=== PATIENT | female | born 1970 | race Caucasian/White ===

== ENCOUNTER 2019-11-20 13:29 | Emergency (ER) | payer BC, OTHER ==
[2019-11-20 13:50] VITALS: BP 156/87
--- NOTE | 2019-11-20 14:12 | UC ---
Respiratory Complaint HPI - HPI Summary HPI Summary: cough x 7 days cough is dry , worse with exertion and deep breathing better with rest, mild nasal congestion , pnd no fever, no chills, c/o chest tightness and sob , no chest pain , no wheezing, not improving with her albuterol inh - History of Current Complaint Chief Complaint: UCGeneralIllness Stated Complaint: SOB Time Seen by Provider: 11/20/19 13:52 Hx Obtained From: Patient Hx Last Menstrual Period: "the end of last month" ?: No Onset/Duration: Gradual Onset, Lasting Days - 7, Still Present Timing: Constant Severity Initially: Moderate Severity Currently: Moderate Pain Intensity: 0 Pain Scale Used: 0-10 Numeric Character: Cough: Nonproductive Aggravating Factors: Exertion, Deep Breaths Associated Signs And Symptoms: Positive: Dyspnea. Negative: Fever, Chills, Pleuritic Chest Pain, Wheezing, URI, Nasal Congestion - Allergies/Home Medications Allergies/Adverse Reactions: Allergies Allergy/AdvReac Type Severity Reaction Status Date / Time amoxicillin [From Augmentin] Allergy See Comment Verified 11/20/19 13:51 clavulanic acid Allergy See Comment Verified 11/20/19 13:51 [From Augmentin] Home Medications: Home Medications Albuterol 2.5MG/3ML (0.083%)* [Ventolin 2.5 MG/3 ML NEB.OLE*] 2.5 mg INH Q4H PRN 07/19/16 [History Confirmed 11/20/19] Albuterol HFA INHALER* [Ventolin HFA Inhaler*] 2 puff INH Q6H #1 mdi 07/19/16 [ Rx Confirmed 11/20/19] Beclomethasone 80 MCG MDI(NF) [Qvar 80 MCG MDI(NF)] 1 puff INH BID #1 mdi [Rx Confirmed 11/20/19] Lisinopril TAB* [Prinivil TAB*] 10 mg PO DAILY 11/20/19 [History Confirmed 11/19] predniSONE [Prednisone 20 MG TAB] 20 mg PO BID #10 tablet 11/20/19 [Rx] PMH/Surg Hx/FS Hx/Imm Hx Respiratory History: COPD Other History Of: Negative For: HIV, Hepatitis B, Hepatitis C, Anticoagulant Therapy - Surgical History Surgical History: Yes Surgery Procedure, Year, and Place: gallbladder removed, tubal ligation, D&C - Family History Known Family History: Positive: None Negative: Cardiac Disease, Hypertension, Respiratory Disease - Social History Alcohol Use: Daily Substance Use Type: None Smoking Status (MU): Heavy Every Day Tobacco Smoker Type: Cigarettes Amount Used/How Often: 1/2 PPD Length of Time of Smoking/Using Tobacco: On and Off for 33 Years Have You Smoked in the Last Year: Yes When Did the Patient Quit Smoking/Using Tobacco: Jun 2015 Household Exposure Type: Cigarettes - Immunization History Most Recent Influenza Vaccination: Not the Most Recent Pneumonia Vaccination: 2014 Review of Systems All Other Systems Reviewed And Are Negative: Yes Constitutional: Positive: Negative Skin: Positive: Negative Eyes: Positive: Negative ENT: Positive: Negative Respiratory: Positive: Shortness Of Breath, Cough Is Patient Immunocompromised?: No Physical Exam Triage Information Reviewed: Yes Appearance: Well-Appearing, No Pain Distress, Well-Nourished Vital Signs: Initial Vital Signs Temp 98.4 F 11/20/19 13:44 Pulse 92 11/20/19 13:44 Resp 18 11/20/19 13:44 BP 156/87 11/20/19 13:44 Pulse Ox 98 11/20/19 13:44 Vital Signs Reviewed: Yes Eye Exam: Normal Eyes: Positive: Conjunctiva Clear ENT Exam: Normal ENT: Positive: Normal ENT inspection, Hearing grossly normal, Pharynx normal Neck: Positive: Supple, Nontender, No Lymphadenopathy Respiratory: Positive: Chest non-tender, No respiratory distress, No accessory muscle use, Decreased breath sounds. Negative: Respiratory distress Cardiovascular: Positive: RRR, No Murmur, Pulses Normal Abdominal Exam: Normal Respiratory Course/Dx - Differential Dx/Diagnosis Provider Diagnosis: COPD (chronic obstructive pulmonary disease) Discharge ED - Sign-Out/Discharge Documenting (check all that apply): Patient Departure All imaging exams completed and their final reports reviewed: No Studies - Discharge Plan Condition: Stable Disposition: HOME Prescriptions: predniSONE [Prednisone 20 MG TAB] 20 mg PO BID #10 tablet Patient Education Materials: COPD (Chronic Obstructive Pulmonary Disease) (ED) Forms: *Work Release Referrals: No Primary Care Phys,NOPCP [Primary Care Provider] - If Needed - Billing Disposition and Condition Condition: STABLE Disposition: Home
== END 2019-11-20 14:06 | disposition home or self-care (01) ==
LOC: UCCORT 13:29
DX: J44.9 Chronic obstructive pulmonary disease, unspecified (principal); Z88.0 Allergy status to penicillin; Z88.1 Allergy status to other antibiotic agents; F17.210 Nicotine dependence, cigarettes, uncomplicated; Z79.899 Other long term (current) drug therapy; Z79.52 Long term (current) use of systemic steroids
CPT/HCPCS: 99211; G0463

== ENCOUNTER 2019-12-06 11:17 | Emergency (ER) | payer OTHER ==
--- NOTE | 2019-12-06 12:20 | UC ---
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 Had brief improvement with use of oral prednisone, but is again using her albuterol up to 4 times per day. She is aware that this is overuse. She is concerned that she continues to work at [employer] and feels unprotected from the coughing and sneezing of clients. A halfway house counselor several days ago stated that their parent had tested positive for Greenberg virus. This is beyond the usual duration of her asthma exacerbations. She has not used a Qvar inhaler in years, has not seen her primary MD in years, but they continue to send in rx's for albuterol for her. No fever, chest pain, does have a sore throat and drainage. - History of Current Complaint Chief Complaint: UCRespiratory Stated Complaint: SOB,ST Time Seen by Provider: 12/06/19 12:08 Hx Obtained From: Patient Hx Last Menstrual Period: "end of last month" ?: No Onset/Duration: Gradual Onset, Lasting Weeks Timing: Constant Severity Initially: Moderate Severity Currently: Moderate Pain Intensity: 5 Character: Cough: Nonproductive Aggravating Factors: Exertion, Recumbent Position Alleviating Factors: Bronchodilator, Upright Position Associated Signs And Symptoms: Positive: Dyspnea, Nasal Congestion - Risk Factors Pulmonary Embolism Risk Factors: Negative Cardiac Risk Factors: Hypertension Pseudomonas Risk Factors: Negative Tuberculosis Risk Factors: Negative - Allergies/Home Medications Allergies/Adverse Reactions: Allergies Allergy/AdvReac Type Severity Reaction Status Date / Time amoxicillin [From Augmentin] Allergy See Comment Verified 12/06/19 11:21 clavulanic acid Allergy See Comment Verified 12/06/19 11:21 [From Augmentin] Home Medications: Home Medications Albuterol 2.5MG/3ML (0.083%)* [Ventolin 2.5 MG/3 ML NEB.OLE*] 2.5 mg INH Q4H PRN 07/19/16 [History Confirmed 12/06/19] Albuterol HFA INHALER* [Ventolin HFA Inhaler*] 2 puff INH Q6H #1 mdi 07/19/16 [ Rx Confirmed 12/06/19] Lisinopril TAB* [Prinivil TAB*] 10 mg PO DAILY 11/20/19 [History Confirmed 12/05] Beclomethasone 80 MCG MDI(NF) [Qvar 80 MCG MDI(NF)] 2 puff INH BID #1 mdi [Rx] predniSONE 20 mg TAB [Deltasone 20 MG TAB*] 40 mg PO DAILY #10 tab 12/06/19 [Rx] PMH/Surg Hx/FS Hx/Imm Hx Cardiovascular History: Hypertension Other History Of: Negative For: HIV, Hepatitis B, Hepatitis C, Anticoagulant Therapy - Surgical History Surgical History: Yes Surgery Procedure, Year, and Place: gallbladder removed, tubal ligation, D&C - Family History Known Family History: Positive: None, Respiratory Disease - father, Other - father CA lung, mother of liver disease Negative: Cardiac Disease, Hypertension - Social History Occupation: Employed Full-time Lives: With Family Alcohol Use: Daily Substance Use Type: None Smoking Status (MU): Heavy Every Day Tobacco Smoker Type: Cigarettes Amount Used/How Often: 1/2 PPD Length of Time of Smoking/Using Tobacco: On and Off for 33 Years Have You Smoked in the Last Year: Yes When Did the Patient Quit Smoking/Using Tobacco: Jun 2015 Household Exposure Type: Cigarettes - Immunization History Most Recent Influenza Vaccination: Not the 2015/2016 Season Most Recent Pneumonia Vaccination: 2014 Review of Systems All Other Systems Reviewed And Are Negative: Yes Constitutional: Positive: Fatigue Skin: Positive: Negative Eyes: Positive: Negative ENT: Positive: Sore Throat Respiratory: Positive: Shortness Of Breath, Cough Cardiovascular: Positive: Other - has not taken her lisinopril today. Negative : Palpitations, Chest Pain Gastrointestinal: Positive: Negative Genitourinary: Positive: Negative Motor: Positive: Negative Neurovascular: Positive: Negative Musculoskeletal: Positive: Negative Neurological/Mental Status: Positive: Negative Psychological: Positive: Anxious Is Patient Immunocompromised?: No Physical Exam Triage Information Reviewed: Yes Appearance: No Pain Distress, Well-Nourished, Other: - In no acute distress, speaks easily. ENT: Positive: Pharyngeal erythema. Negative: Tonsillar swelling - tonsillectomy Dental Exam: Normal Neck: Positive: Supple, Nontender, No Lymphadenopathy Respiratory: Positive: No respiratory distress, No accessory muscle use, Wheezing, Expiration - prolonged Cardiovascular: Positive: RRR, No Murmur, Tachycardia Musculoskeletal Exam: Normal Neurological Exam: Normal Neurological: Positive: Alert, Muscle Tone Normal Psychological Exam: Normal Skin Exam: Normal Respiratory Course/Dx - Course Course Of Treatment: Discussed findings most suggestive of asthma exacerbation, possible allergies. Denies previous hx of allergies. Will give short burst of steroids, resume use of ICS. Discussed that sometimes PA is needed for ICS. COVID testing done as she continues to work in the community without much protection. - Differential Dx/Diagnosis Differential Diagnosis/HQI/PQRI: Asthma, Bronchitis, Lower Resp Infection, Sinusitis Provider Diagnosis: Asthma exacerbation Discharge ED - Sign-Out/Discharge Documenting (check all that apply): Patient Departure All imaging exams completed and their final reports reviewed: No Studies - Discharge Plan Condition: Stable Disposition: HOME Prescriptions: Beclomethasone 80 MCG MDI(NF) [Qvar 80 MCG MDI(NF)] 2 puff INH BID #1 mdi predniSONE 20 mg TAB [Deltasone 20 MG TAB*] 40 mg PO DAILY #10 tab Patient Education Materials: Asthma (ED) Forms: COVID-19 Tested & Isolation Referrals: Jerry Gold PA [Primary Care Provider] - Additional Instructions: Your findings are most suggestive of a bad exacerbation of asthma. Begin prednisone orally in addition to QVAR: you can stop the use of prednisone once you find that the Qvar is resulting in some improvement. Rinse your mouth after use of the steroid inhaler to decrease the risk of thrush. Your blood pressure is very high today. Please take your lisinopril as soon as you get home. Arrange a follow up visit with your Primary care in 1 week to reassess your asthma and adjust your medications. CALL THE PHARMACY TO ARRANGE [facility] OF YOUR MEDS. YOU MUST REMAIN ISOLATED UNTIL THE RESULT OF THE COVID TESTING IS KNOWN. It is also possible that you have unrecognized environmental allergies. It might help to add an antihistamine such as fexofenadine 180mg once daily for a week or so to test this. Side effects are minimal and it will not affect your blood pressure. - Billing Disposition and Condition Condition: STABLE Disposition: Home
[2019-12-06 12:51] VITALS: BP 169/123
== END 2019-12-06 13:09 | disposition home or self-care (01) ==
LOC: UCCORT 11:17
DX: J45.901 Unspecified asthma with (acute) exacerbation (principal); Z20.828 Contact with and (suspected) exposure to other viral communicable diseases; I10 Essential (primary) hypertension; Z79.899 Other long term (current) drug therapy; Z88.1 Allergy status to other antibiotic agents; Z88.0 Allergy status to penicillin; Z72.0 Tobacco use
CPT/HCPCS: 87635; 99212; G0463